=== PATIENT | female | born 1935 | race Caucasian/White ===

== ENCOUNTER 2016-03-04 09:46 | Emergency (ER) | payer MEDICARE, OTHER ==
[2016-03-04] MEDS ORDERED: Ibuprofen TAB* 600 MG PO ONE (10:38)
[2016-03-04] MEDS ORDERED: Cyclobenzaprine TAB* 10 MG PO ONE (10:39)
--- NOTE | 2016-03-04 11:15 | ED ---
Lower Extremity - HPI Summary HPI Summary: 81 female presents to ED complaining of right hip/pelvis pain after a fall that happened around 4:00am today, 03/04/16 while getting into bed. Patient states she was walking up steps into her bed when she slipped and fell backward. A door behind her somewhat caught her fall however she slammed to the ground onto her pelvis/hips. She states she felt instant pain. She tried to go back to bed as she thought it was muscular injuries however was unable to lay comfortably. Patient says the pain is about a 7/10 upon changing positions, weight bearing and during the car ride over. She can walk, however, it causes her a great deal of pain. The worst position is when she is laying on her back with her knees flexed. She is comfortable laying in the left lateral recumbent position and only making minor movements. Patient has not taken any medication for the pain. She admits to having some muscle spasms in her lower back/buttock region, right side worse than the left. Pain is described as sharp upon movement that causes her to feel nauseous. It is a dull achey pain when laying comfortably and not moving. Denies any new numbness/tingling and radiation of pain. She did not hit her head, no LOC. Patient states she normally has some balance issues and neuropathy of both feet. Denies c/p, difficulty breathing, cold/numb feet, neck/ back pain, knee pain, bruising, swelling or deformity. - History of Current Complaint Chief Complaint: EDHipPelvisInjury Stated Complaint: FALL Hx Obtained From: Patient, Family/Sales Account Director Hx Last Menstrual Period: n/a Mechanism Of Injury: Fall From A Standing Position Onset of Pain: Immediate Onset/Duration: Hours Severity Initially: Mild Severity Currently: Moderate Pain Intensity: 9 Pain Scale Used: 0-10 Numeric Timing: Intermittent - dull and achey when in comfortable position, worst upon movement or weight bearing. Location: Is Diffuse - pelvis/hips, lower back around s1-s5, buttocks Character Of Pain: Sharp, Dull, Aching, Spasmodic Associated Signs And Symptoms: Positive: Negative Aggravating Factor(s): Standing, Ambulation, Movement, Weight Bearing Alleviating Factor(s): Rest Able to Bear Weight: Yes - painful - Allergies/Home Medications Allergies/Adverse Reactions: Allergies Allergy/AdvReac Type Severity Reaction Status Date / Time Cefuroxime Allergy Intermediate RASH WITH Verified 01/13/16 08:01 ITCHING Nickel Allergy Intermediate Rash Verified 01/13/16 08:01 Clarithromycin Allergy Mild Itching Verified 01/13/16 08:01 Sulfa Drugs Allergy Unknown Unknown Verified 01/13/16 08:01 Reaction Details Sulfamethoxazole Allergy Unknown Verified 01/13/16 08:01 w/Trimethoprim Reaction [From Bactrim] Details PMH/Surg Hx/FS Hx/Imm Hx Endocrine/Hematology History: Reports: Hx Blood Transfusions, Hx Anemia Denies: Hx Anticoagulant Therapy, Hx Blood Disorders, Hx Bone Marrow Disease , Hx Diabetes, Hx Systemic Lupus Erythematosus, Hx Sickle Cell Disease, Hx Thyroid Disease, Hx Unexplained Bleeding Cardiovascular History: Reports: Hx Hypercholesterolemia - hx of hyperlipidemia , Other Cardiovascular Problems/Disorders - 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 Denies: Hx Auto Implanted Cardiovert Defib, Hx Cardiac Arrest, Hx Congenital Heart Disease, Hx Congestive Heart Failure, Hx Deep Vein Thrombosis, Hx Hypotension, Hx Hypertension, Hx Myocardial Infarction, Hx Pacemaker/ICD, Hx Peripheral Vascular Disease, Hx Rheumatic Fever, Hx Valvular Heart Disease Respiratory History: Reports: Hx Asthma, Hx Lung Cancer - Lobectomy of right lung., Hx Seasonal Allergies - sees public records researcher and has had desensitizing shots for them, Other Respiratory Problems/Disorders - COPD Denies: Hx Chronic Obstructive Pulmonary Disease (COPD), Hx Cystic Fibrosis, Hx Pneumonia, Hx Pulmonary Embolism, Hx Sleep Apnea GI History: Reports: Hx Gastroesophageal Reflux Disease, Hx Hiatal Hernia - per 2008 H+P, Other GI Disorders - reflux Denies: Hx Cirrhosis, Hx Crohn's Disease, Hx Diverticulosis, Hx Gall Bladder Disease, Hx Gastrointestinal Bleed, Hx Irritable Bowel, Hx Jaundice, Hx Obstructive Bowel, Hx Ileostomy, Hx Pyloric Stenosis, Hx Ulcer, Hx Urosepsis History: Denies: Hx Acute Renal Failure, Hx Benign Prostatic Hyperplasia, Hx Chronic Renal Failure, Hx Dialysis, Hx Kidney Infection, Hx Kidney Stones, Hx Renal Disease Musculoskeletal History: Reports: Hx Arthritis, Hx Back Problems - from 2008 H+P ,hx of sciatica with spondylolisthesis(Right L-5), Hx Tendonitis - hx of achilles,rotator cuff,de Quervain disease,R Wrist, Other Musculoskeletal History - osteopenia Denies: Hx Rheumatoid Arthritis, Hx Bursitis, Hx Congenital Bone Abnormalities, Hx Fibromyalgia, Hx Gout, Hx Orthopedic Injury, Hx Osteoporosis, Hx Scoliosis Sensory History: Reports: Hx Cataracts - bilat extraction, Hx Contacts or Glasses, Hx Macular Degeneration Denies: Hx Eye Injury, Hx Eye Prosthesis, Hx Deafness, Hx Hearing Aid, Hx Hearing Problem, Other Sensory Impairments Opthamlomology History: Reports: Hx Cataracts - bilat extraction, Hx Contacts or Glasses, Hx Macular Degeneration Denies: Hx Eye Injury, Hx Eye Prosthesis, Other Sensory Impairments Neurological History: Reports: Hx Headaches, Hx Migraine, Hx Seizures - She is Lamictal for "one episode" of seizures., Hx Transient Ischemic Attacks (TIA), Other Neuro Impairments/Disorders - 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 D&C. CATARACTS Hx Anesthesia Reactions: No Infectious Disease History: No Infectious Disease History: Reports: Hx Shingles - 3 years, History Other Infectious Disease - Pneumonia Denies: Hx Hepatitis, Hx Human Immunodeficiency Virus (HIV), Hx Tuberculosis , Traveled Outside the [place] in Last 30 Days - Family History Known Family History: Positive: Cardiac Disease, Other - Cancer of colon and throat Negative: Diabetes, Renal Disease - Social History Alcohol Use: Rare Substance Use Type: Reports: None Smoking Status (MU): Never Smoked Tobacco Review of Systems Constitutional: Negative Eyes: Negative ENT: Negative Cardiovascular: Negative Respiratory: Negative Gastrointestinal: Negative Genitourinary: Negative Positive: Arthralgia - hips/pelvis, Myalgia - hips/ pelvis, Decreased ROM - due to pain Skin: Negative Neurological: Negative Psychological: Normal All Other Systems Reviewed And Are Negative: Yes Physical Exam Triage Information Reviewed: Yes Vital Signs On Initial Exam: Initial Vitals Temp Pulse Resp BP Pulse Ox 97.9 F 96 18 151/87 100 03/04/16 09:49 03/04/16 09:49 03/04/16 09:49 03/04/16 09:49 03/04/16 09:49 Blood pressure slightly elevated, however patient is in pain. will be re- evaluated and monitored Vital Signs Reviewed: Yes Appearance: Positive: Well-Appearing, Well-Nourished, Pain Distress Skin: Positive: Warm, Skin Color Reflects Adequate Perfusion - pulses are strong and equal b/l. <2 sec cap refill, Dry Eyes: Positive: Normal Neck: Positive: Supple, Nontender Respiratory/Lung Sounds: Positive: Clear to Auscultation, Breath Sounds Present Cardiovascular: Positive: Normal, RRR, Pulses are Symmetrical in both Upper and Lower Extremities Abdomen Description: Positive: Nontender Musculoskeletal: Positive: Limited @ - hip flexion, extension, abduction/ adduction, internal/external rotation and weight bearing. able to move however causes pain. no upper back, knee, or calf pain b/l, normal ROM., Pain @ - upon palpation and movement of pelvis/hips and lower lumbosacral spine. inspection normal, no obvious deformities, ecchymosis or edema.. Negative: Carlton Sign Left , Carlton Sign Right Neurological: Positive: Normal, Sensory/Motor Intact - suffers from b/l neuropathy, her normal, Alert, Oriented to Person Place, Time, CN Intact II-III , Reflexes Intact Psychiatric: Positive: Normal Diagnostics - Vital Signs Vital Signs Temp Pulse Resp BP Pulse Ox 03/04/16 09:49 97.9 F 96 18 151/87 100 - Laboratory Lab Statement: Any lab studies that have been ordered have been reviewed, and results considered in the medical decision making process. - Radiology b/l hips, pelvis Xray Interpretation: No Acute Changes - MINOR SYMMETRIC NARROWING ABOUT BOTH HIP JOINT SPACE Radiology Interpretation Completed By: Radiologist lumbosacral x-ray Xray Interpretation: No Acute Changes - MILD OSTEOARTHRITIC CHANGES Radiology Interpretation Completed By: Radiologist Lower Extremity Course/Dx - Course Course Of Treatment: Patient was given ice, ibuprofen and flexeril to help with pain, inflammation and muscle spasms. X-ray of b/l hips, pelvis and lumbosacral spine taken. All x-rays showed arthritic changes but no acute injury or fractures. Patient will be sent home with muscle relaxers and pain management. She also will be given a walker. - Diagnoses Differential Diagnosis/HQI/PQRI: Positive: Arthritis, Contusion, Fracture ( Closed), Sprain, Strain Provider Diagnoses: Sprain and strain of lumbosacral joint/ligament, Hip sprain Discharge - Discharge Plan Condition: Improved Disposition: HOME Prescriptions: Cyclobenzaprine TAB* [Flexeril TAB*] 10 mg PO BID PRN #14 tab PRN Reason: Spasms - Back Naproxen TAB* [Naprosyn TAB*] 375 mg PO Q8H #14 tab Patient Education Materials: Hip Sprain (ED), Lower Back Exercises (ED) Referrals: Asia Abebe MD [Primary Care Provider] - Sharon Bautista MD [Medical Doctor] - Additional Instructions: Take medication as prescribed for pain, inflammation and muscle spasms. Do not drive while taking Flexeril muscle relaxer as it may make you drowsy. Use ice/ heat as needed. Get plenty of rest. Refrain from excessive physical activity until symptoms have resolved. If symptoms worsen or do not improve please return to ER promptly. If you are still experiencing pain after 7-10 days, make an appointment to follow-up with orthopedics. Addendum entered and electronically signed by Carlene Hale PA 03/05/16 11: 02: ED Addendum Addendum: Physical Exam: Cardiovascular: Murmur heard, patient states she has had this for years
--- NOTE | 2016-03-04 11:16 | RAD ---
INDICATION: Bilateral hip pain COMPARISON: None TECHNIQUE: An AP view of the pelvis and AP views of the hip in neutral and abducted position were obtained FINDINGS: Bones: There are no acute bony findings. There is degenerative change of the lower lumbar spine Joint spaces: There is minor, symmetric narrowing about both hip joint spaces. SI joints/symphysis: The SI joints and symphysis are intact. Other: There are aortic calcifications IMPRESSION: MINOR SYMMETRIC NARROWING ABOUT BOTH HIP JOINT SPACES
--- NOTE | 2016-03-04 12:27 | RAD ---
INDICATION: Back pain. Injury. COMPARISON: None TECHNIQUE: Routine PA, lateral, and oblique imaging was performed . FINDINGS: Bones: The bony structures are osteopenic. There are mild biconcave endplate changes. There is minor multilevel facet arthropathy. Alignment: Normal Disc spaces: The disc spaces are well-maintained Soft tissues: There are aortic calcifications. There is moderate stool. IMPRESSION: MILD OSTEOARTHRITIC CHANGE.
[2016-03-04 14:19] VITALS: BP 120/67
== END 2016-03-04 14:18 | disposition home or self-care (01) ==
LOC: ED 09:46
DX: S73.109A Unspecified sprain of unspecified hip, initial encounter (principal); S39.012A Strain of muscle, fascia and tendon of lower back, initial encounter; M25.551 Pain in right hip; M62.830 Muscle spasm of back; W10.9XXA Fall (on) (from) unspecified stairs and steps, initial encounter; Y93.9 Activity, unspecified; Y92.9 Unspecified place or not applicable; Y99.9 Unspecified external cause status
CPT/HCPCS: 72110; 73523; 99282; A9270-GY